=== PATIENT | female | born 2000 | race Caucasian/White ===

== ENCOUNTER 2021-12-11 16:57 | Emergency (ER) | payer SELFPAY ==
[~2021-12-11] VITALS: Ht 165.1 cm; Wt 64.0 kg
[2021-12-11 16:58] VITALS: BP 104/59
== END 2021-12-11 19:15 | disposition left against medical advice (07) ==
LOC: M ED 16:57
DX: Z53.29 Procedure and treatment not carried out because of patient's decision for other reasons (principal)